=== PATIENT | female | born 1960 ===

== ENCOUNTER 2018-08-21 15:30 | Emergency (ER) | payer OTHER ==
--- OUTSIDE RECORDS SUMMARY | 2018-08-21 15:44 | XMS REPORT | Continuity of Care Document ---
:1960 External Reference #:[id number] Author Name Laurita Graham PA-C Address [address] [place] [address] [place] [address] Care Team Providers Name Role Phone Adal Melendez MD Care Team Information Belly Dancer Unavailable Adal Melendez MD Primary Care Physician Unavailable Payers Type Date Identification Numbers Payment Provider Subscriber Policy Number: [id number] [facility] Tiffany Madrid PayID: [id number] [place] [address] Expires: 2017 Policy Number: [id number] [facility] Tiffany Madrid Group Number: [id number] [address] PayID: [id number] [place] [address] Advance Directives Description No Information Available Problems Date Description Provider Status Onset: 07/19/2018 Chronic ulcerative proctitis Laurita Graham PA-C Active Onset: 03/19/2018 Acute proctitis Laurita Graham PA-C Active Onset: 12/11/2017 Hemorrhage of rectum and anus Laurita Graham PA-C Active Onset: 12/11/2017 Gastroduodenitis Laurita Graham PA-C Active Family History Date Family Member(s) Problem(s) Comments Children 2 Social History Type Date Description Comments Sex Unknown ETOH Use Rarely consumes alcohol Tobacco Use Start: Unknown Patient has never smoked Smoking Status Reviewed: 07/19/18 Patient has never smoked Allergies, Adverse Reactions, Alerts Date Description Reaction Status Severity Comments 08/31/2017 Contrast Dye Active Medications Medication Date Status Form Strength Qnty SIG Indications Ordering Provider Anusol-HC 11/09 Active Suppository 25mg 24uni [address] ts of rectum L. every Jenntrom night at , DERICK bedtime Estradiol Active Tablets 0.5mg take 1 Unknown /0000 tablet every other day Mupirocin Active Ointment 2% apply topically prn Topicort Active Cream 0.05% twice a Unknown 0000 day Uro-MP Active Capsules 118mg take 1 Unknown /0000 capsule by mouth every 6 hours if needed Triamcinolone Active Ointment 0.025% Use A Unknown Acetonide Small Amount (1/2 To 1 GM) Twice A Day Hydroxychloroquin Active Tablets 200mg take 1 And Unknown e Sulfate /0000 1/2 tablets by mouth once daily Colyte With 09/04 Hx Solution 240gm 4000m by mouth ColleenConcept3D Pack Rec l as Brooks, - directed [employer]-C 12/10 Colyte-Flavor 09/04 Hx Solution 240gm 4000m As R10.30 Colleen Pack Rec l directed Brooks, - [employer]C 09/07 Enablex Hx Tablets ER 7.5mg one at Unknown / 24HR night - 12/10 Desoximetasone Hx Cream 0.25% Unknown - 07/18 Dicyclomine HCL Hx Capsules 10mg take 1 Unknown 0000 capsule by - mouth 07/18 times a day if needed Immunizations Description No Information Available Vital Signs Date Vital Result Comment 07/19/2018 9:35am Height 60.5 inches 5'0.50" Weight 138.00 lb BP Systolic 106 mmHg BP Diastolic 68 mmHg Heart Rate 72 /min BMI (Body Mass Index) 26.5 kg/m2 03/19/2018 10:11am Height 60.5 inches 5'0.50" Weight 140.00 lb BP Systolic 124 mmHg BP Diastolic 72 mmHg Heart Rate 74 /min BMI (Body Mass Index) 26.9 kg/m2 12/11/2017 11:22am Height 60.5 inches 5'0.50" Weight 144.00 lb BP Systolic 130 mmHg BP Diastolic 70 mmHg Heart Rate 74 /min BMI (Body Mass Index) 27.7 kg/m2 09/04/2017 10:08am Height 60.5 inches 5'0.50" Weight 143.00 lb BP Systolic 120 mmHg BP Diastolic 84 mmHg Heart Rate 72 /min BMI (Body Mass Index) 27.5 kg/m2 Results Test Date Facility Test Result H/L Range Note Laboratory test 11/09/2017 [facility] [place] RESULT 1 finding Interface Order BELOW Laboratory test 11/09/2017 [facility] [place] Clotest SEE RESULT 2 finding BELOW Xray 06/17/2016 [facility] [place] Abd/Pel W/O <pending> Surgical 02/06/2014 [facility] [place] DATE: Pathology 02/10/ <SEE NOTE> CBC No Diff 12/09/2011 [facility] [place] White Blood 6.0 CUMM 4.8-10.8 Count Red Cell Count 3.71 CUMM Low 4.2-5.4 Hemoglobin 12.7 g/dL 12.0-16.0 Hematocrit 36 % 35-47 Mean Corpuscular Volume 98 um3 High 79-97 Mean Corpuscular Hemoglob 34 pg High 27-31 Mean Corpuscular HGB Cone 35 g/dL 32-36 Redcell Distribution WDTH 13 % 10.5-15 Platelet Count 190 CUMM 150-450 Mean Platelet Volume 10.0 um3 7.4-10.4 PTH Intact, Inc Total Calcium 12/09/2011 [facility] [place] PTH Intact 4.8 PMOL/L 1.3- 9.3 Calcium For Pthi 9.1 mg/dL 8.1-9.9 3 Laboratory test finding 12/09/2011 [facility] [place] Endomysial Abs Negative Negative 4 Transglutaminase Iga Autoab <1.2 U/mL () 5 Comp Metabolic Panel 12/09/2011 [facility] [place] Sodium 138 mmol/L 135-145 Potassium 4.6 mmol/L 3.5-5.0 Chloride 104 mmol/L 101-111 Co2 (Carbon Dioxide) 31.0 mmol/L 22-32 Anion Gap 3.0 mmol/L 2-11 6 Glucose 90 mg/dL 70-100 BUN 12 mg/dL 6-24 Creatinine 0.7 mg/dL 0.50-1.40 One Over Creatinine 1.42 BUN/Creatinine Ratio 17.1 8-20 Calcium 9.2 mg/dL 8.1-9.9 Total Protein 6.6 GM/DL 6.2-8.1 Albumin 4.2 GM/DL 3.6-5.4 Globulin 2.4 GM/DL 2-4 Albumin/Globulin Ratio 1.8 1-3 Bilirubin Total 0.6 mg/dL 0.4-1.5 7 Alkaline Phosphatase 49 U/L 30-110 Alt (SGPT) 30 U/L 14-54 Ast (Sgot) 34 U/L 12-42 eGFR Non- 88.6 > 60 eGFR 113.9 > 60 8 Laboratory test finding 12/09/2011 [facility] Thyroxine 6.5 g/dL 5-12 T3 Total 1.14 NG/ML 0.5-1.7 TSH 1.24 MIU/ML 0.34-5.60 1 SEE RESULT BELOW Name: TIFFANY MADRID : [address]: Nellie Quiñonez DO Acct: [id number] Unit: [id number] AGE: 57 Location: ENDO Re11/09/17 SEX: F Status: DEP REF SPEC: [id number] JESÚS: 11/09/17- SUBM DR: Nellie Quiñonez DO REQ: [id number] RECD: 11/09/17 STATUS: SADAF ANN DR: Adal Melendez MD _ ORDERED: LEVEL 4/3 FINAL DIAGNOSIS 1. Esophagus, distal, biopsy: -- Minute fragments of columnar-type mucosa with mild chronic inflammation. -- Intestinal metaplasia is absent. -- Dysplasia is absent. 2. Colon, random, biopsy: -- Benign colonic mucosa with no significant pathologic abnormalities. -- No evidence of microscopic colitis. 3. Colon, rectum, biopsy: -- Chronic, focally active colitis. -- Granulomata are not seen. -- Dysplasia is absent. -- No evidence of viral cytopathic effect or parasites. CLINICAL HISTORY Dysphagia/change in bowel habits/rectal bleeding/history of polyps POST-OPERATIVE DIAGNOSIS EGD: normal esophagus ? biopsy; very mild gastritis ? biopsy CLOtest; normal small bowel; colonoscopy: proctitis 10-20 cm ? biopsy; otherwise normal colon to cecum ? random biopsies GROSS DESCRIPTION 1. The specimen is received in formalin labeled, Distal Esophagus Biopsy, and consists of a 0.4 x 0.2 x 0.1 cm kirby-pink irregular soft tissue fragment which is submitted entirely in one cassette. 2. The specimen is received in formalin labeled, Random Colon Biopsies, and consists of a 0.6 x 0.5 x 0.1 cm aggregate of kirby-pink irregular soft tissue fragments which is submitted entirely in one cassette. CONTINUED ON NEXT PAGE DEPARTMENT OF PATHOLOGY, [address] [place] [address] Chris Padilla M.D. Director [facility] # [id number] RUN DATE: 11/10/17 [facility] LAB LIVE PAGE 2 Patient: TIFFANY MADRID [id number] (Continued) GROSS DESCRIPTION (Continued) GROSS DESCRIPTION (Continued) 3. The specimen is received in formalin labeled, Rectal Biopsies, and consists of a 0.6 x 0.5 by up to 0.2 cm aggregate of kirby-pink irregular soft tissue fragments which is submitted entirely in one cassette. Signed (signature on file) Tammie Norman MD 01/22 1043 END OF REPORT DEPARTMENT OF PATHOLOGY, [address] [place] [address] Chris Padilla M.D. Director [facility] # [id number] 2 SEE RESULT BELOW Name: TIFFANY MADRID : [address]: Nellie Quiñonez DO Acct: [id number] Unit: [id number] AGE: 57 Location: ENDO Re11/09/17 SEX: F Status: REG REF SPEC: [id number] JESÚS: 11/09/17-[address]: Nellie Quiñonez DO REQ: [id number] RECD: 11/09/17 STATUS: KAREN ANN DR: Adal Melendez MD _ SOURCE: [facility]: ORDERED: Clotest Procedure Result Reported Site Clotest Final 11/10/17807 ML Clotest Negative * ML - Main Lab . END OF REPORT DEPARTMENT OF PATHOLOGY, [address] [place] [address] Chris Padilla M.D. Director [facility] # [id number] 3 Please note change in reference range effective 08 . 4 Negative in normal Individuals. May be negative in dermatitis herpatiformis or celiac disease patients adhering to a gluten free diet. Laboratory developed test. Test Performed by: [facility] Dpt of Lab Med and Pathology [address] [place] [id number] Critical Care Physician: Abilio Salas III, M.D. 5 -- REFERENCE VALUE -- <4.0 (Negative) Test Performed by: [facility] Dpt of Lab Med and Pathology [address] [place] [id number] Critical Care Physician: Abilio Salas III, M.D. 6 Anion gap measurement may be of limited value in the presence of any alkalosis, especially in a combined acid base disorder. . 7 A metabolite of Naproxen, O-desmethylnaproxen, has been shown to interfere with the Jendrassik-Casnov[place] method for measuring total bilirubin. Samples from patients who have taken Naproxen have shown spurious elevation in total bilirubin levels. 8 Because ethnic data is not always readily available, this report includes an eGFR for both -Americans and non- Americans. The National Kidney Disease Education Program (NKDEP) does not endorse the use of the MDRD equation for patients that are not between the ages of 18 and 70, are , have extremes of body size, muscle mass, or nutritional status, or are non- or non-. According to the National Kidney Foundation, irrespective of diagnosis, the stage of the disease is based on the level of kidney function: Stage Description GFR(mL/min/1.73 m(2)) 1 Kidney damage with normal or decreased GFR 90 2 Kidney damage with mild decrease in GFR 60-89 3 Moderate decrease in GFR 30-59 4 Severe decrease in GFR 15-29 5 Kidney failure <15 (or dialysis) Procedures Date Code Description Status 03/27/2018 5 Small Balance Write Off Completed 11/05/2017 [id number] Colonoscopy Completed 02/06/2014 03017 Colonoscopy W/ Snare RM Of Polyp/Tumor/Lesion Completed 02/06/2014 96700 Colonscopy+Biopsy Completed 11/27/2008 09200 Colonscopy+Biopsy Completed 11/13/2003 42953 Colonoscopy Completed Encounters Type Date Location Provider Dx Diagnosis Office Visit 03/19/2018 [facility] Laurita Wallis K29.70 Gastritis, 10:00a [facility] unspecified, without bleeding K62.89 Other specified diseases of anus and rectum Office 12/11/2017 [facility]enter[facility] Laurita Wallis K29.50 Unspecified Visit 11:15a [facility] chronic gastritis without bleeding K29.70 Gastritis, unspecified, without bleeding K62.5 Hemorrhage of anus and rectum K62.89 Other specified diseases of anus and rectum Office Visit 09/04/2017 [facility]enter[facility] Colleen R10.30 Lower abdominal 10:00a [facility], pain, [employer] unspecified R19.4 Change in bowel habit K62.5 Hemorrhage of anus and rectum R13.10 Dysphagia, unspecified R13.12 Dysphagia, oropharyngeal phase R49.0 Dysphonia Office Visit 12/09/2011 Gastroenterology Colleen Guy, 564.1 Irritable 2:15p [facility] [employer] Bowel Syndrome Plan of Treatment Future Appointment(s):10/17/2018 9:30 am - SREE Daly-C at [facility]07/19/2018 - SREE Daly- CK29.70 Gastritis, unspecified, without [id number] Ulcerative (chronic) proctitis with rectal bleeding
[2018-08-21 15:55] VITALS: BP 127/60
--- NOTE | 2018-08-21 16:09 | UC ---
UC General HPI - HPI Summary HPI Summary: 2 DAYS OF FREQUENT-URGENT URINATION. HX CYSTITIS SO TX URISTAT. NOW BURNING WELL. NO FEVER OR ABDOMINAL PAIN. - History of Current Complaint Chief Complaint: UCGU Stated Complaint: URINARY Time Seen by Provider: 08/21/18 15:42 Hx Obtained From: Patient Hx Last Menstrual Period: n/a Onset/Duration: Gradual Onset Timing: Constant Pain Intensity: 3 Associated Signs & Symptoms: Negative: Abdominal Pain, Fever - Allergy/Home Medications Allergies/Adverse Reactions: Allergies Allergy/AdvReac Type Severity Reaction Status Date / Time iohexol Allergy sneezing, Verified 08/21/18 15:56 wheezing Home Medications: Home Medications Calcium Citrate TAB* [Citracal TAB*] 200 mg PO DAILY 08/21/18 [History Confirmed 08/21/18] Hydroxychloroquine TAB* [Plaquenil TAB*] 150 mg PO BID 08/21/18 [History Confirmed 08/21/18] Uristat 1 tab PO ONCE PRN 08/21/18 [History Confirmed 08/21/18] PMH/Surg Hx/FS Hx/Imm Hx - Additional Past Medical History Additional PMH: CYSTITIS, AUTOIMMUNE DISORDER - Surgical History Surgical History: Yes Surgery Procedure, Year, and Place: HYSTERECTOMY 1997. SINUS SURGERY 2004. RT BREAST BIOPSY-BENIGN 2009 - Family History Known Family History: Positive: None - Social History Alcohol Use: Rare Substance Use Type: None Smoking Status (MU): Never Smoked Tobacco Review of Systems All Other Systems Reviewed And Are Negative: Yes Constitutional: Positive: Negative Skin: Positive: Negative Eyes: Positive: Negative ENT: Positive: Negative Respiratory: Positive: Negative Cardiovascular: Positive: Negative Gastrointestinal: Positive: Negative Genitourinary: Positive: Dysuria, Hematuria - CHRONIC, Frequency, Urgency Motor: Positive: Negative Neurovascular: Positive: Negative Musculoskeletal: Positive: Negative Neurological: Positive: Negative Psychological: Positive: Negative Physical Exam Triage Information Reviewed: Yes Appearance: Well-Appearing Vital Signs: Initial Vital Signs Temp 97.3 F 08/21/18 15:50 Pulse 83 08/21/18 15:50 Resp 16 08/21/18 15:50 BP 127/60 08/21/18 15:50 Pulse Ox 98 08/21/18 15:50 Vital Signs Reviewed: Yes Eyes: Positive: Conjunctiva Clear ENT: Positive: Normal ENT inspection Neck: Positive: Supple, Nontender, No Lymphadenopathy Respiratory: Positive: Lungs clear, Normal breath sounds Cardiovascular: Positive: RRR, No Murmur Abdomen Description: Positive: Nontender, No Organomegaly, Soft. Negative: CVA Tenderness (R), CVA Tenderness (L), Distended, Guarding Bowel Sounds: Positive: Present Musculoskeletal: Positive: ROM Intact Neurological: Positive: Alert Psychological: Positive: Age Appropriate Behavior Skin Exam: Normal Diagnostics - Laboratory Diagnostic Studies Completed/Ordered: UNABLE TO DO U/A DUE TO TX PUSHER RUNNER. URINE CULTURE=PENDING. Course/Dx - Course Course Of Treatment: WILL TX FOR PRESUMPTIVE UTI. - Differential Dx - Multi-Symptom Differential Diagnoses: Urinary Tract Infection, Other - CYSTITIS - Diagnoses Provider Diagnosis: Dysuria Discharge - Sign-Out/Discharge Documenting (check all that apply): Patient Departure All imaging exams completed and their final reports reviewed: No Studies - Discharge Plan Condition: Stable Disposition: HOME Prescriptions: Nitrofurantoin Monohyd/M-Cryst [Macrobid 100 mg Capsule] 100 mg PO BID 5 Days # 10 cap Patient Education Materials: Dysuria (ED) Referrals: Adal Melendez MD [Primary Care Provider] - 5 Days - Billing Disposition and Condition Condition: STABLE Disposition: Home
== END 2018-08-21 16:19 | disposition home or self-care (01) ==
LOC: UCCORT 15:30
DX: R30.0 Dysuria (principal); Z91.041 Radiographic dye allergy status
CPT/HCPCS: 87077; 87086; 87186; 99212; G0463